=== PATIENT | female | born 1985 ===

== ENCOUNTER 2021-04-21 03:51 | Emergency (ER) | payer SELFPAY ==
[2021-04-21 04:03] VITALS: BP 177/76; PULSE 66; RESP 18; TEMP 98.1
--- NOTE | 2021-04-21 05:06 | ED ---
General Adult HPI - General Chief complaint: Recheck/Abnormal Lab/Rx Stated complaint: covid swab Time Seen by Provider: 04/21/21 03:59 Source: patient Mode of arrival: ambulatory - History of Present Illness Initial comments: This patient is a 35-year-old woman presenting to have COVID-[place] test [place]. Denies medical complaint. Patient declines medical screening exam - Related Data Allergies Allergy/AdvReac Type Severity Reaction Status Date / Time No Known Allergies Allergy Verified 04/21/21 04:03 Review of Systems ROS Statement: Those systems with pertinent positive or pertinent negative responses have been documented in the HPI. ROS Other: All systems not noted in ROS Statement are negative. Past Medical History Past Medical History: No Reported History History of Any Multi-Drug Resistant Organisms: None Reported Past Surgical History: No Surgical Hx Reported Past Psychological History: No Psychological Hx Reported Smoking Status: Never smoker Past Alcohol Use History: None Reported Past Drug Use History: None Reported Course Vital Signs 04/21/21 03:57 Temperature 98.1 F Pulse Rate 66 Respiratory 18 Rate Blood Pressure 177/76 O2 Sat by Pulse 98 Oximetry Disposition Clinical Impression: Encounter for immunological test Disposition: HOME SELF-CARE Condition: Good Is patient prescribed a controlled substance at d/c from ED?: No Referrals: None,Stated [Primary Care Provider] - 1-2 days
== END 2021-04-21 05:24 | disposition home or self-care (01) ==
LOC: EC 03:51
DX: Z20.822 Contact with and (suspected) exposure to COVID-19 (principal)
CPT/HCPCS: 87635; 99282